=== PATIENT | male | born 1970 | race Caucasian/White ===

== ENCOUNTER 2024-11-09 13:48 | Inpatient (IN) | payer BC ==
--- OUTSIDE RECORDS SUMMARY | 2024-11-09 13:52 | XMS REPORT | Continuity of Care Document ---
Author Name Unknown Address [address] [facility] [address] [place] [address] [facility] Address [address] [facility] [address] [place] [address] Care Team Providers Care Boat Finisher Name Role Phone Pcp, Patient Does Not Have A Primary Care Physic gustavo BALDEMAR BOURGEOIS Attending Clinician Unavailable Baldemar Bourgeois MD Attending Clinician [phone] Doctor Unassigned, Leal Attending Clinician U navailable Payers Payer Name Policy Type Policy Number Effective Date Expirati on Date Source [facility] [id number] 2017 00:00:00 Allergies, Adverse Reactions, Alerts Allergy Name Allergy Type Status Severity Reaction(s) Onset Date Inactive Date Treating Clinician Comments Source NO KNOWN ALLERGIE S Drug Class Active [facility] Social History Social Habit Start Date Stop Date Quantity Comments Source Gender identity [facility] Sexual orientation U [facility] Sex Assigned At 1970 00:00:00 1970 00:00:00 [facility] Smoking Status Start Date Stop Date Source Tobacco smoking consumption unknown [facility] Procedures Procedure Date / Time Performed Performing Clinicia n Source EXTERNAL PROVIDER - ADC CARDIOLOGY 2023-06-12 05:01:00 Doctor Unassigned, Leal [facility] Encounters Start Date/Time End Date/Time Encounter Type Admission Type Attending Clinicians Care Facility Care Department Encounter ID Source 2023-10-13 13:00:00 2023-10-13 13:00:00 Outpatient R BALDEMAR BOURGEOIS [facility] [id number] [facility] 2023-06-19 00:00:00 2023-06-19 00:00:00 Telephone Dwayne Baldemar [facility] PROFESSIO [facility] 1..[id number] [facility] 2023-06-12 00:00:00 2023-06-12 00:00:00 Orders Only Doctor Unassigned, Leal [facility] 1..840.114 [id number] [facility]
[2024-11-09] MEDS ORDERED: ALBUTEROL 2.5 MG/3 ML NEB SOL ONE (14:10)
[2024-11-09] MEDS ORDERED: IPRATROPIUM BROM 0.5MG/2.5ML ONE (14:10)
[2024-11-09] MEDS ORDERED: NA CHLORIDE 0.9% 500 ML ONE (14:56)
[2024-11-09] MEDS ORDERED: NA CHLORIDE 0.9% 2,000 ML ONE (14:56)
[2024-11-09 15:01] LABS: Absolute Eosinophils 0.1 K/uL (0-0.5); Absolute Lymphocytes (CBC) 1.4 K/uL (0.7-4.9); Absolute Monocytes 0.8 K/uL (0.1-1.3); Absolute Neutrophil 4.3 K/uL (1.8-8.0); Basophils % 0.4 % (0-1.3); Eosinophils % 1.6 % (0-4.4); Hematocrit 36.4 % (39.6-49.0); Hemoglobin 12.1 g/dL (13.6-17.9); Lymphocytes % 21.2 % (15.3-44.8); MCH 32.8 pg (27.0-35.0); MCHC 33.1 g/dL (32.0-36.0); MCV 99.1 fL (80-100); MPV 6.7 fL (7.6-11.3); Monocytes % 12.1 % (3.3-12.3); Neutrophils % 64.7 % (41.7-73.7); Nucleated Red Blood Cells % 0.1 % (0-0); Platelets 184 thou/uL (152-406); RBC Red Blood Cell Count 3.67 M/uL (4.33-5.43); Red Cell Distribution Width 15.5 % (12.1-15.2)
[2024-11-09 15:18] LABS: PT Prothrombin Time 12.3 SECONDS (9.4-12.5); PTT, Activated Partial Thromb 32.1 SECONDS (24.3-36.9); Protime INR 1.17
[2024-11-09 15:32] LABS: Albumin 2.8 g/dL (3.4-5.0); Albumin/Globulin Ratio 0.6 (1.1-1.8); Anion Gap 2.8 mEq/L (5.0-15.0); Bilirubin Total 0.6 mg/dL (0.2-1.0); Globulin 4.5 g/dL (2.3-3.5); Potassium 3.8 mEq/L (3.5-5.1); Protein, Total 7.3 g/dL (6.4-8.2)
[2024-11-09 15:54] LABS: Thyroid Stimulating Hormone 22.3 uIU/mL (0.358-3.740)
[2024-11-09 16:17] LABS: SARS-CoV-2 Antigen CONTROL BLUE LINE VIS/BG OK; SARS-CoV-2 Antigen Rapid Res Negative (Negative)
--- NOTE | 2024-11-09 16:41 | RAD REPORT ---
EXAM: CT Head Brain Wo Cont HISTORY: SLURRED SPEECH COMPARISON: None TECHNIQUE: Multiple contiguous axial images were obtained for a CT of the brain without contrast. Sag ittal and coronal reformats were performed. One or more of the following dose reduction techniques were used: Automated exposure control, adjus tment of the mA and kV according to patient size, and iterative reconstruction. Unless otherwise specified, incidental findings do not require dedicated imaging follow-up. FINDINGS: No evidence of hydrocephalus, intracranial hemorrhage, or extra-axial fluid collection. The brain is normal in morphology. The calvarium is intact. The visualized paranasal sinuses show patchy opacification with complete opa cification of the left maxillary sinus. Leftward directed shelflike spur of the nasal septum, encroaching upon the root of the left inferior turbinate. Large periapical collections along the seco nd to last bilateral maxillary molars, with communication with the maxillary antrum cavities, with larger gap on the left. IMPRESSION: No evidence of acute intracranial abnormality. Opacification throughout the paranasal sinuses as above. Periapical collections along the second to l ast bilateral maxillary molars with communication with the maxillary antra, suggesting sinus disease of odontogenic origin. Please correlate clinically.
--- NOTE | 2024-11-09 16:48 | RAD REPORT ---
EXAMINATION: ONE VIEW CHEST XR CLINICAL INDICATION: Male, 54 years old.,Cough;Congestion TECHNIQUE: Frontal chest projection is submitted. Examination is limited by patient positioning and t echnique. COMPARISON: 02/13/2013 FINDINGS: Mild central interstitial prominence. Suboptimal inspiratory effort somewhat limits evaluation. No p neumothorax or sizable effusion. The heart is upper limit of normal in size. Mediastinal contours are unremarkable. IMPRESSION: Mild central interstitial prominence, could relate to central atelectatic changes or mild congestion.
[2024-11-09 17:29] LABS: Arterial Blood Carboxyhemoglob 1.2 % (0-1.5); Blood Gas Oxyhemoglobin 88.1 % (94-97); Blood O2 Saturation 90.9 % (92-98.5)
--- NOTE | 2024-11-09 19:34 | RAD REPORT ---
EXAMINATION: CT Thorax Wo Con CLINICAL INDICATION: Male, 54 years old. [facility] DYSPNEA Bed Name: 16 Y TECHNIQUE: Axial CT scan of the chest without intravenous contrast. Multiplanar reformats were genera luis fernando and reviewed. One or more of the following dose reduction techniques were used: Automated exposure control, adjustment of the mA and/or kV according patient size, and/or iterative reconstruct ion. Unless otherwise specified, incidental findings do not require dedicated imaging follow-up. COMPARISON: Chest radiograph earlier the same day FINDINGS: LOWER NECK: Visualized thyroid gland and soft tissues are normal. LUNGS: Patchy dependent lower lobe consolidative airspace opacities worse on the left. Other scattere d tree-in-bud opacities throughout the left more than right lungs, with some accompanying bilateral lower lobe bronchial wall thickening. Findings could obscure subtle suspicious nodules. PLEURA: No pleural effusion. No pneumothorax. . MEDIASTINUM AND LYMPH NODES: No mediastinal mass or fluid collection. Prominent right paraesophageal posterior mediastinal 1.1 cm node. Otherwise normal size mediastinal, hilar, and axillary lymph nodes. OSSEOUS STRUCTURES AND CHEST WALL: Intact. UPPER ABDOMEN: No significant abnormalities. IMPRESSION: Patchy lower lobe predominant consolidative as well as more diffuse tree-in-bud opacities bilaterally , overall findings are worse throughout the left lung. Appearance is most suggestive of a multifocal infectious or inflammatory process such as pneumonia.
--- NOTE | 2024-11-09 19:53 | EDPHYS ---
Physician Documentation [facility] Name: Jeromy Flores Age: 54 yrs Sex: Male : 1970 Arrival Date: 11/09/2024 Time: 13:48 Bed 15 Private MD: ED Physician Andre Alonzo HPI: 11/09 14:07 This 54 yrs old Male presents to ER via Ambulatory with complaints of Flu Symptoms, kb Dizziness. 14:07 Pt is a 54 year old male who presents for cough, congestion, shortness of breath, kb fatigue, weakness and slower thought process than normal for 2-4 weeks. Son states he thinks pt had the flu last week and is getting over it now. States he hasn't been able to bring him up here until now. Pt reports history of hypothyroidism, but hasn't been on medication for about 2 years. States he doesn't have a PCP so he is unsure of any other medical issues. Stopped smoking close to 10 years ago. . Historical: - Allergies: 14:01 No Known Allergies; cm10 - PMHx: 14:01 Hypothyroidism; cm10 - Immunization history:: Adult Immunizations unknown. - Infectious Disease History:: Denies. - Social history:: Smoking status: Patient/guardian denies using tobacco, the patient reports quitting approximately 6 years ago. ROS: 14:07 Constitutional: As per HPI kb Exam: 14:11 Constitutional: This is a well developed, well nourished patient who is awake, alert, kb and in no acute distress. Head/Face: Normocephalic, atraumatic. ENT: Moist Mucous membranes Cardiovascular: Regular rate Abdomen/GI: Soft, non-tender. No distention MS/ Extremity: Pulses equal, no cyanosis. Neurovascular intact. Full, normal range of motion. 14:11 Respiratory: the patient does not display signs of respiratory distress, Respirations: normal, Breath sounds: decreased breath sounds, 14:11 Skin: Appearance: normal except for affected area, Color: dusky, 14:11 Neuro: Orientation: to person, place, time \T\ situation. Mentation: able to follow commands, slow to respond, Motor: moves all fours, 15:20 ECG was reviewed by the Attending Physician. kb Vital Signs: 13:59 BP 90 / 60; Pulse 69; Resp 18; Temp 98.4; Pulse Ox 72% ; Weight 113.4 kg; Height 5 ft. cm10 7 in. ; Pain 0/10; 14:10 Pulse Ox 94% on 6 lpm NC; cm10 14:53 BP 99 / 55; Pulse 60; Resp 19; Pulse Ox 94% on 4 lpm NC; ap3 16:08 BP 92 / 66; Pulse 67; Pulse Ox 96% on 4 lpm NC; ap3 17:02 BP 107 / 66; Pulse 64; Resp 17; Pulse Ox 88% on 5 lpm NC; ap3 18:18 BP 103 / 54; Pulse 54; Resp 16; Pulse Ox 97% on BiPAP; ap3 13:59 Body Mass Index 39.16 (113.40 kg, 170.18 cm) cm10 13:59 Pain Scale: Adult cm10 MDM: 13:54 Medical Screening Exam initiated kb 14:12 Data reviewed: vital signs, nurses notes. kb 15:08 Independent interpretation of the following test(s) in the Emergency Department X-Ray: kb My interpretation is CXR reveals pulmonary edema. Historians other than the Patient: Daughter/Son: son. ED course: Patient will be given 1000ml of IV fluid instead of 30ml/kg due to concern for fluid overload, pulmonary edema on CXR. 19:50 Differential diagnosis: viral Infection, bacterial infection, pneumonia pulmonary kb edema, PE. Consideration of Admission/Observation Patient was admitted/placed on observation. Escalation of care including admission/observation considered. Management of patient was discussed with the following: Hospitalist: Dr Sparrow accepts pt for admission. Counseling: I had a detailed discussion with the patient and/or guardian regarding the historical points, exam findings, and any diagnostic results supporting the discharge/admit diagnosis, lab results, radiology results, the need for further work-up and treatment in the hospital. ED course: Discussed transfer for ICU capacity with pt and son. They do not want to be transferred, prefer to stay here. Son's name Reynold, phone number [phone].. 11/09 14:03 Order name: Blood Culture Adult (2) kb 11/09 14:03 Order name: CBC with Diff; Complete Time: 15:03 kb 11/09 14:03 Order name: CMP; Complete Time: 16:08 kb 11/09 14:03 Order name: Lactate w/ 2H reflex if indic.; Complete Time: 15:59 kb 11/09 14:03 Order name: Protime (+inr); Complete Time: 15:19 kb 11/09 14:03 Order name: Ptt, Activated; Complete Time: 15:19 kb 11/09 14:03 Order name: Flu; Complete Time: 16:21 kb 11/09 14:03 Order name: SARS-COV-2 Antigen Rapid; Complete Time: 16:21 kb 11/09 14:03 Order name: Troponin High Sensitivity; Complete Time: 16:08 kb 11/09 14:03 Order name: BNP; Complete Time: 16:08 kb 11/09 14:04 Order name: TSH; Complete Time: 16:08 kb 11/09 15:56 Order name: T4 Free; Complete Time: 16:08 EDMS 11/09 16:57 Order name: ABG; Complete Time: 17:34 kb 11/09 20:45 Order name: Urinalysis w/ reflexes EDMS 11/09 20:45 Order name: Basic Metabolic Panel EDMS 11/09 20:45 Order name: Basic Metabolic Panel EDMS 11/09 20:45 Order name: CBC with Automated Diff EDMS 11/09 20:45 Order name: CBC with Automated Diff EDMS 11/10 09:46 Order name: CBC Smear Scan EDMS 11/09 14:03 Order name: Chest Single View XRAY; Complete Time: 16:50 kb 11/09 14:04 Order name: CT Head Brain wo Cont; Complete Time: 16:44 kb 11/09 16:51 Order name: CT Chest Wo Con; Complete Time: 19:35 kb 11/09 17:15 Order name: BIPAP kb 11/09 14:03 Order name: EKG; Complete Time: 14:04 kb 11/09 14:03 Order name: Accucheck; Complete Time: 15:35 kb 11/09 14:03 Order name: Cardiac monitoring; Complete Time: 14:53 kb 11/09 14:03 Order name: EKG - Nurse/Tech; Complete Time: 15:35 kb 11/09 14:03 Order name: IV Saline Lock - Large Bore; Complete Time: 14:53 kb 11/09 14:03 Order name: Labs collected and sent; Complete Time: 14:53 kb 11/09 14:03 Order name: O2 Per Protocol; Complete Time: 14:53 kb 11/09 14:03 Order name: O2 Sat Monitoring; Complete Time: 14:53 kb 11/09 14:03 Order name: Vital Signs; Complete Time: 14:53 kb EC:20 Rate is 70 beats/min. Rhythm is regular. QRS Ovalo is Normal. DC interval is normal at kb 192 msec. QRS interval is normal at 84 msec. QT interval is normal at 434 msec. Administered Medications: 14:16 Drug: Albuterol Inhalation 2.5 mg Inhalation once Route: Inhalation; cm10 14:16 Drug: Ipratropium Inhalation Aerosol 0.5 mg Inhalation once Route: Inhalation; cm10 15:02 Drug: NS 0.9% IV (30 ml/kg) 30 ml/kg IV at bolus once; Sepsis Protocol; to be given as ap3 a bolus over 90 minutes {Note: administer 1,000mls per provider 1000.} Route: IV; Rate: bolus; Site: right antecubital; 20:28 Drug: Zithromax IVPB 500 mg IVPB once over 1 hrs; mix in 250 mL NS Route: IVPB; Infused ay Over: 1 hrs; Site: right antecubital; 20:29 Drug: Rocephin IV 1 grams IV at calculated rate once; Given slow IV push per pharmacy ay instructions Route: IV; Rate: calculated rate; Site: right antecubital; Disposition: 18:00 I agree with the assessment and plan of care. ec2 Disposition Summary: 11/09/24 19:52 Hospitalization Ordered Notes: Hospitalization Status: Inpatient Admission kb Provider: Ancelmo Sparrow Condition: Fair kb Problem: new kb Symptoms: are unchanged kb Bed/Room Type: Standard Location: Telemetry/MedSurg (Inpatient)(11/10/24 14:41) kb3 Room Assignment: 206(11/10/24 14:41) kb3 Diagnosis - Pneumonia, unspecified organism kb - Hypoxia kb Discharge Instructions: - Discharge Summary Sheet ap3 Forms: - Medication Reconciliation Form kb - Leadership Thank You Letter kb - SBAR form ap3 Critical care time excluding procedures: 17:16 Critical care time: Bedside Care: 15 minutes, Consultation: 10 minutes, Family kb Intervention: 5 minutes. Total time: 30 minutes Signatures: Dispatcher [employer] Cynthia Smith FNP-C FNP-Ckb Annel Mendoza, RN RN ap3 Virginia Syed RN RN kb3 Kajal Jacobson rv1 Sangeeta Lawson bc6 Diann Bone RN RN cm10 Andre Alonzo MD MD ec2 Anitha Stewart RN RN ay Corrections: (The following items were deleted from the chart) 14:05 14:05 THYROID STIMULAT HORMONE+C.LAB.BRZ ordered. EDMS EDMS 16:57 16:57 Arterial Blood Gas+RC.LAB.BRZ ordered. EDMS EDMS 20:56 19:52 Telemetry/MedSurg (Inpatient) kb rv1 20:56 19:52 kb rv1 11/10 14:41 02/05 20:56 [facility] ER HOLD rv1 6 11/10 14:41 02/05 20:56 ERHOLD- rv1 6 11/10 14:41 14:41 Telemetry/MedSurg (Inpatient) 6 kb3 14:41 14:41 206 6 kb3
--- NOTE | 2024-11-09 19:53 | ER ---
Nurse's Notes [facility] Name: Jeromy Flores Age: 54 yrs Sex: Male : 1970 Arrival Date: 11/09/2024 Time: 13:48 Bed 15 Private MD: Diagnosis: Pneumonia, unspecified organism;Hypoxia Presentation: 11/09 13:59 Chief complaint: Patient states: Cough, congestion, shortness of breath and fatigue cm10 onset 2 weeks ago. Coronavirus screen: Client denies travel out of the [place] in the last 14 days. Ebola Screen: Patient denies travel to an Ebola-affected area in the 21 days before illness onset. Initial Sepsis Screen: Does the patient meet any 2 criteria? No. Patient's initial sepsis screen is negative. Does the patient have a suspected source of infection? No. Patient's initial sepsis screen is negative. Risk Assessment: Do you want to hurt yourself or someone else? Patient reports no desire to harm self or others. Onset of symptoms was November 09, 2024. 13:59 Method Of Arrival: Ambulatory cm10 13:59 Acuity: JAZMINE 2 cm10 Historical: - Allergies: 14:01 No Known Allergies; cm10 - PMHx: 14:01 Hypothyroidism; cm10 - Immunization history:: Adult Immunizations unknown. - Infectious Disease History:: Denies. - Social history:: Smoking status: Patient/guardian denies using tobacco, the patient reports quitting approximately 6 years ago. Screenin:08 [facility] ED Fall Risk Assessment (Adult) History of falling in the last 3 months, ap3 including since admission No falls in past 3 months (0 pts) Confusion or Disorientation No (0 pts) Intoxicated or Sedated No (0 pts) Impaired Gait No (0 pts) Mobility Assist Device Used Yes (1 pt) Altered Elimination No (0 pt) Score/Fall Risk Level 0 - 2 = Low Risk Oriented to surroundings, Maintained a safe environment, Educated pt \T\ family on fall prevention, incl call for assistance when getting out of bed, Assessed \T\ reinforced patient's understanding of fall precautions, Hourly rounding (assess needs \T\ fall precautionary measures) done, Used ambulatory aids as needed (educated on \T\ assisted with). Abuse screen: Denies threats or abuse. Nutritional screening: No deficits noted. Tuberculosis screening: No symptoms or risk factors identified. Assessment: 14:10 General: O2 sat decreased to 54% on RA. Pt placed on 6L via NC and O2 sat improved to cm10 94%. Provider made aware.. 15:38 General: Appears comfortable, Behavior is calm, cooperative, appropriate for age. Pain: ap3 Denies pain. Neuro: Level of Consciousness is awake, alert, obeys commands, Oriented to person, place, time, situation, Appropriate for age Speech is normal. Neuro: Reports dizziness has resolved. Cardiovascular: Patient's skin is warm and dry. Respiratory: Airway is patent Respiratory effort is even, unlabored, Respiratory pattern is regular, symmetrical. 16:12 Reassessment: Patient states symptoms have improved. ap3 Vital Signs: 13:59 BP 90 / 60; Pulse 69; Resp 18; Temp 98.4; Pulse Ox 72% ; Weight 113.4 kg; Height 5 ft. cm10 7 in. ; Pain 0/10; 14:10 Pulse Ox 94% on 6 lpm NC; cm10 14:53 BP 99 / 55; Pulse 60; Resp 19; Pulse Ox 94% on 4 lpm NC; ap3 16:08 BP 92 / 66; Pulse 67; Pulse Ox 96% on 4 lpm NC; ap3 17:02 BP 107 / 66; Pulse 64; Resp 17; Pulse Ox 88% on 5 lpm NC; ap3 18:18 BP 103 / 54; Pulse 54; Resp 16; Pulse Ox 97% on BiPAP; ap3 13:59 Body Mass Index 39.16 (113.40 kg, 170.18 cm) cm10 13:59 Pain Scale: Adult cm10 ED Course: 13:53 Patient arrived in ED. al6 13:54 [facility] kb 13:54 Andre Alonzo MD is Attending Physician. kb 14:01 Triage completed. cm10 14:02 Arm band placed on right wrist. Patient placed in an exam room, on a stretcher, on cm10 oxygen, on pulse oximetry. 14:42 Chest Single View XRAY In Process Unspecified. EDMS 14:52 Annel Mendoza, RN is Primary Nurse. ap3 14:52 Patient has correct armband on for positive identification. Placed in gown. Bed in low ap3 position. Call light in reach. Side rails up X2. Adult w/ patient. Client placed on continuous cardiac and pulse oximetry monitoring. NIBP monitoring applied. monitoring and evaluation advisor on. Pulse ox on. NIBP on. 14:52 Initial lab(s) drawn, by me, sent to lab. Inserted saline lock: 20 gauge in right ap3 antecubital area, using aseptic technique. Blood collected. Flushed with 10 mL NS. 15:03 CT Head Brain wo Cont In Process Unspecified. EDMS 15:19 EKG done, by ED staff, reviewed by Cynthia RAE. ap3 16:09 Provided Education on: fall risk education . ap3 18:49 CT Chest Wo Con In Process Unspecified. EDMS 19:48 Initiated transfer with My Carmona at [facility]. My informed me that [address] was declining due to capacity. Offered to check [facility] [place] although she was sure they were closed as well but Cynthia Villela INTERPRETATIVE DANCER said to cancel transfer due to family request. 19:52 Ancelmo Sparrow MD is Hospitalizing Provider. kb Administered Medications: 14:16 Drug: Albuterol Inhalation 2.5 mg Inhalation once Route: Inhalation; cm10 14:16 Drug: Ipratropium Inhalation Aerosol 0.5 mg Inhalation once Route: Inhalation; cm10 15:02 Drug: NS 0.9% IV (30 ml/kg) 30 ml/kg IV at bolus once; Sepsis Protocol; to be given as ap3 a bolus over 90 minutes {Note: administer 1,000mls per provider 1000.} Route: IV; Rate: bolus; Site: right antecubital; 20:28 Drug: Zithromax IVPB 500 mg IVPB once over 1 hrs; mix in 250 mL NS Route: IVPB; Infused ay Over: 1 hrs; Site: right antecubital; 20:29 Drug: Rocephin IV 1 grams IV at calculated rate once; Given slow IV push per pharmacy ay instructions Route: IV; Rate: calculated rate; Site: right antecubital; Outcome: 19:52 Decision to Hospitalize by Provider. kb 11/10 16:21 Patient left the ED. iw Signatures: Dispatcher [employer] EDCynthia Owens FNP-C FNP-Kianna Sidhu RN Annel Fitzgerald RN RN ap3 Kajal Jacobson rv1 Diann Bone RN RN cm10 Anitha Stewart RN Iva Nunez Corrections: (The following items were deleted from the chart) 11/09 14:21 14:15 General: O2 sat decreased to 54% on RA. Pt placed on 6L via NC and O2 sat cm10 improved to 94%. Provider made aware.. cm10
[2024-11-09] MEDS ORDERED: AZITHROMYCIN 500 MG INJ IVPB ONE (19:59)
[2024-11-09] MEDS ORDERED: CEFTRIAXONE 1000 MG/VIAL ONE (19:59)
[2024-11-09] MEDS ORDERED: NA CHLORIDE 0.9% 250 ML ONE (20:00)
[2024-11-10] MEDS: METHYLPREDNISOLONE 125 MG INJ IV SCH
[2024-11-10] MEDS ORDERED: METHYLPREDNISOLONE 40 MG INJ ONE ×2 (01:42→06:17)
[2024-11-10] MEDS: ALBUTEROL 2.5 MG/3 ML NEB SOL NEB SCH (01:58)
[2024-11-10] MEDS: IPRATROPIUM BROM 0.5MG/2.5ML NEB SCH (01:58)
[2024-11-10 06:38] LABS: Anion Gap 3.2 mEq/L (5.0-15.0); Potassium 4.2 mEq/L (3.5-5.1)
[2024-11-10 06:44] LABS: Absolute Lymphocytes (CBC) 0.7 K/uL (0.7-4.9); Absolute Monocytes 0.3 K/uL (0.1-1.3); Absolute Neutrophil 5.8 K/uL (1.8-8.0); Basophils % 0.2 % (0-1.3); Eosinophils % 0.5 % (0-4.4); Hematocrit 37.8 % (39.6-49.0); Hemoglobin 12.4 g/dL (13.6-17.9); Lymphocytes % 9.8 % (15.3-44.8); MCH 33.1 pg (27.0-35.0); MCHC 32.7 g/dL (32.0-36.0); MCV 101.1 fL (80-100); MPV 7.6 fL (7.6-11.3); Monocytes % 3.8 % (3.3-12.3); Neutrophils % 85.7 % (41.7-73.7); Nucleated Red Blood Cells % 0.2 % (0-0); Platelets 194 thou/uL (152-406); RBC Red Blood Cell Count 3.74 M/uL (4.33-5.43); Red Cell Distribution Width 15.7 % (12.1-15.2)
--- NOTE | 2024-11-10 06:56 | P.HP ---
Certification for Inpatient Patient admitted to: Inpatient With expected LOS: >2 Midnights Practitioner: I am a practitioner with admitting privileges, knowledge of patient current condition, hospital course, and medical plan of care. Services: Services provided to patient in accordance with Admission requirements found in Title 42 Section 412.3 of the Code of Federal Regulations Patient History Date of Service: 11/10/24 Reason for admission: pneumonia History of Present Illness: Cough shortness of breath 54-year-old male with history of COPD, hypothyroidism previous tobacco use presents with complaints of progressive fatigue weakness, cough congestion and shortness of breath. The patient reports not having a PCP and reports being off medications for some time Allergies No Known Allergies Allergy (Unverified 02/13/13 22:31) Review of Systems 10-point ROS is otherwise unremarkable Respiratory: Cough, Shortness of Breath Physical Examination - Vital Signs Pulse: 61 Pulse Ox (%): 96 - Physical Exam General: Oriented x3, Other (BIPAP) Respiratory: Other (BIPAP) Cardiovascular: Regular rate/rhythm Gastrointestinal: Normal bowel sounds, Soft and benign Neurological: Other (lethargic , arousable ) - Studies Laboratory Data (last 24 hrs) 11/09/24 11/09/24 11/09/24 14:46 14:46 14:46 WBC 6.70 Hgb 12.1 L Hct 36.4 L Plt Count 184 PT 12.3 INR 1.17 APTT 32.1 Sodium 136 Potassium 3.8 BUN 26 H Creatinine 2.01 H Glucose 96 Total Bilirubin 0.6 AST 57 H ALT 55 Alkaline Phosphatase 80 Microbiology Data (last 24 hrs): 11/09/24 15:16 Nasopharnyx Influenza Type A Antigen Screen - Final 11/09/24 15:16 Nasopharnyx Influenza Type B Antigen Screen - Final Assessment and Plan - Problems (Diagnosis) (1) COPD (chronic obstructive pulmonary disease) Current Visit: Yes Status: Acute (2) Hypercapnia Current Visit: Yes Status: Acute (3) Pneumonia Current Visit: Yes Status: Acute (4) Hypothyroid Current Visit: Yes Status: Acute (5) Acute kidney failure Current Visit: Yes Status: Acute - Plan 54-year-old male presents with progressive shortness of breath COPD exacerbation Community-acquired pneumonia Acute hypoxemic hypercapnia respiratory failure -- Continue oxygen, BiPAP, azithromycin, Rocephin, albuterol, ipratropium -- Reports previous smoker Hypothyroidism --Off treatment currently TFTs abnormal Acute kidney injury --Unclear baseline creatinine, gentle hydration repeat labs, renal dose medications Medication noncompliance -- Would benefit from case management consultation to establish PCP and medication access - Advance Directives Does patient have a Living Will: No Does patient have a Durable POA for Healthcare: No
[2024-11-10] MEDS: AZITHROMYCIN 1 GM PACKET PO SCH (07:00)
[2024-11-10] MEDS ORDERED: IPRATROPIUM BROM 0.5MG/2.5ML ONE ×2 (08:35→14:36)
[2024-11-10] MEDS ORDERED: ALBUTEROL 2.5 MG/3 ML NEB SOL ONE ×2 (08:35→14:35)
[2024-11-10] MEDS ORDERED: ENOXAPARIN 40 MG/0.4 ML SQ ONE (08:45)
[2024-11-10] MEDS ORDERED: CEFTRIAXONE 1000 MG/VIAL ONE (08:45)
[2024-11-10] MEDS ORDERED: NA CHLORIDE 0.9% 100 ML ONE (08:46)
[2024-11-10] MEDS: CEFTRIAXONE 1,000 MG in NA CHLORIDE 0.9% 50 ML IVPB SCH (09:00)
[2024-11-10] MEDS: ENOXAPARIN 40 MG/0.4 ML SQ SCH (09:00)
[2024-11-10 09:46] LABS: Basophilic Stippling 1+; Blood Morphology Comment NOTED (NOT SEEN); Platelet Estimate ADEQ; White Blood Cell Scan OK (OK)
[2024-11-10] MEDS ORDERED: AZITHROMYCIN 500 MG INJ IVPB ONE (09:55)
[2024-11-10] MEDS ORDERED: NA CHLORIDE 0.9% 250 ML ONE (09:55)
[2024-11-10] MEDS: AZITHROMYCIN IV 500 MG in NA CHLORIDE 0.9% 250 ML IVPB SCH (10:00)
--- NOTE | 2024-11-10 11:28 | EKG ---
Test Date: 2024-11-09 Test Time: 15:12:04 Harvester Operator: ALP MEASUREMENT RESULTS: Intervals: Rate: 70 PA: 192 QRSD: 84 QT: 402 QTc: 434 [place]: P: 62 PA: 192 QRS: 104 T: 66 INTERPRETIVE STATEMENTS: Normal sinus rhythm Low voltage QRS Borderline ECG Compared to ECG 02/14/2013 02:26:18 Low QRS voltage now present Sinus bradycardia no longer present T-wave abnormality no longer present Electronically Signed On 11-10-24 11:25:55 BEEF GRINDER by Jose Alfredo Banerjee
[2024-11-10] MEDS ORDERED: METHYLPREDNISOLONE 125 MG INJ ONE (16:09)
[2024-11-10 16:12] VITALS: BMI 38.9
--- NOTE | 2024-11-10 18:51 | P.PN ---
Date of Service: 11/10/24 Patient seen and examined. Patient noted to be using BiPAP this morning. Arterial blood gas showed CO2 retention. Plan Serial blood gas Bronchodilator treatment IV steroid IV antibiotic Pulmonary consult.
[2024-11-10] MEDS: ALBUTEROL 2.5 MG/3 ML NEB SOL ONE (21:14)
[2024-11-10] MEDS: IPRATROPIUM BROM 0.5MG/2.5ML ONE (21:14)
[2024-11-11] MEDS: LEVOTHYROXINE SOD 0.088 MG TAB PO SCH (05:56)
[2024-11-11 05:59] LABS: Anion Gap 4.9 mEq/L (5.0-15.0); Potassium 4.9 mEq/L (3.5-5.1)
[2024-11-11 06:15] LABS: Absolute Lymphocytes (CBC) 0.6 K/uL (0.7-4.9); Absolute Monocytes 0.3 K/uL (0.1-1.3); Absolute Neutrophil 10.6 K/uL (1.8-8.0); Hematocrit 36.5 % (39.6-49.0); Lymphocytes % 5.6 % (15.3-44.8); MCHC 32.9 g/dL (32.0-36.0); MCV 100.5 fL (80-100); Monocytes % 2.3 % (3.3-12.3); Neutrophils % 92.1 % (41.7-73.7); Nucleated Red Blood Cells % 0.1 % (0-0); Platelets 164 thou/uL (152-406); RBC Red Blood Cell Count 3.64 M/uL (4.33-5.43); Red Cell Distribution Width 15.4 % (12.1-15.2)
[2024-11-11] MEDS: IPRATROPIUM BROM 0.5MG/2.5ML ONE (06:25)
[2024-11-11] MEDS: ALBUTEROL 2.5 MG/3 ML NEB SOL ONE (06:25)
--- NOTE | 2024-11-11 11:36 | P.CNS ---
Date of Consult: 11/11/24 Reason for Consult: Respiratory failure Chief Complaint: pneumonia History of Present Illness: Patient is 54 years of age former smoker apparently has been complaining of worsening dyspnea weight gain quit taking his thyroid medication in the hospital with hypoxic hypercapnic respiratory failure he has been sleeping in an upright position denies any cough to use any bronchodilators at home Allergies No Known Allergies Allergy (Unverified 02/13/13 22:31) Home Medications: Aspirin [Aspirin EC] 81 mg PO DAILY 11/10/24 Furosemide 80 mg PO DAILY 11/10/24 Lisinopril/Hydrochlorothiazide [Lisinopril-Hctz 20-12.5 mg Tab] 20 mg PO DAILY 11/10/24 Metoprolol Succinate 50 mg PO DAILY 11/10/24 - Past Medical/Surgical History -: Hypothyroidism Review of Systems 10-point ROS is otherwise unremarkable General: Weakness Respiratory: Cough, Shortness of Breath Physical Examination Temp Pulse Resp BP Pulse Ox 98.1 F 73 16 88/46 L 92 11/11/24 08:00 11/11/24 08:00 11/11/24 08:00 11/11/24 08:00 11/11/24 08:00 General: Alert, Oriented x3 Respiratory: Diminished, Expiratory wheezes Cardiovascular: No edema, Regular rate/rhythm, Normal S1 S2 Gastrointestinal: Normal bowel sounds, Soft and benign - Problems (1) Respiratory failure Current Visit: Yes Status: Acute Plan: Patient is 54 years of age former smoker admitted with hypoxic hypercapnic respiratory failure hypothyroidism he quit taking his hypothyroid medication about 2 months ago also gained weight complains of excessive daytime somnolence loud snoring most likely has underlying sleep apnea function is abnormal mildly anemic. Bilateral patchy infiltrates most likely underlying pneumonia and is also hypothyroid resume his home thyroxine continue with bronchodilators antibiotics and was on lisinopril diuretics at home may be responsible for his renal failure
--- NOTE | 2024-11-11 12:44 | RAD REPORT ---
EXAMINATION: US RETROPERITONEUM CLINICAL INDICATION: Renal failure TECHNIQUE: Real-time ultrasonography of the abdomen was performed. COMPARISON: No prior exam. FINDINGS: RIGHT KIDNEY: Right renal length measurement: 10.5 cm. Normal in echogenicity and size. No calculus, solid mass or hydronephrosis. Suboptimally visualized due to body habitus. LEFT KIDNEY: Left renal length measurement: 9 cm. Normal in echogenicity and size. No calculus, solid mass or hydronephrosis. Suboptimally visualized due to body habitus. ADDITIONAL FINDINGS: None. IMPRESSION: No hydronephrosis. Suboptimally visualized kidneys but grossly unremarkable.
[2024-11-11 15:24] LABS: Arterial Blood Carboxyhemoglob 0.8 % (0-1.5); Blood Gas Oxyhemoglobin 52.1 % (94-97); Blood Gas THB 13.9 g/dl (12-18); Blood O2 Saturation 53.6 % (92-98.5)
--- NOTE | 2024-11-11 16:10 | P.PN ---
Subjective Date of Service: 11/11/24 Chief Complaint: pneumonia Patient hypoxic to 85% on 5 L oxygen by nasal cannula. He wore BiPAP last night. He reported noncompliance with his thyroid replacement. He denies any chest pain. Physical Examination - Vital Signs Temperature: 97.5 F Blood Pressure: 100/59 Pulse: 82 Respirations: 16 Pulse Ox (%): 90 Assessment And Plan - Plan Physical examination General: Alert and oriented x3, NAD, HEENT: Conjunctiva not pale, anicteric sclera Neck: Supple, no elevated JVD Heart: Heart sounds 1 and 2 normal, regular rhythm, normal rate, 1+ bilateral lower extremity pitting edema Lungs: Bilateral wheezes, diminished breath sounds bilaterally, no crackles. Abdomen: Soft, obese abdomen, nontender, normal bowel sounds. Extremities: No tenderness, no deformity, Skin: Normal skin turgor, bilateral lower extremity venous stasis dermatitis Neuro: No focal motor deficit. Normal speech. Psychiatry: Normal mood, no agitation. Diagnosis COPD exacerbation Community-acquired pneumonia Acute on chronic respiratory failure with hypoxia and hypercapnia Hypothyroidism Acute kidney injury Medical noncompliance Plan COPD exacerbation Community-acquired pneumonia Acute hypoxemic hypercapnia respiratory failure Obesity hypoventilation Obstructive sleep apnea Continue BiPAP, Continue azithromycin, Rocephin, Continue nebs-albuterol, ipratropium IV methylprednisolone Pulmonary consulted. Dr. Bravo input appreciated. Patient stated he quit smoking about 4 to 5 months ago. Hypothyroidism Noncompliance with thyroid replacement therapy. Synthroid resumed at 88 mcg daily. Patient need TSH rechecked in 8 weeks. Acute kidney injury Unclear baseline creatinine gentle hydration. Monitor renal function Nephrology consult. Medication noncompliance Compliance to medical treatment reemphasized. DVT prophylaxis: Heparin Advanced directive: Full code
[2024-11-11] MEDS: HEPARIN 5000 UNIT/ML 1 ML VIAL SQ SCH (17:08)
[2024-11-11] MEDS: NA CHLORIDE 0.9% 1,000 ML IV SCH (18:00)
[2024-11-11 18:03] LABS: Magnesium 2.2 mg/dL (1.6-2.4); Phosphorus 2.2 mg/dL (2.5-4.9)
--- NOTE | 2024-11-11 21:47 | PN ---
Date of Progress Note: 11/11/2024 Subjective: This is a 54-year-old man with past medical history of morbid obesity, COPD, hypothyroid ism, ex-smoker. The patient was sent from PCP for shortness of breath. Upon presentation, labs were significant for elevated TSH and creatinine of 1.9. The patient has no previous medical records. D enied any medical renal disease. The patient also denied NSAID intake. Past Medical History: COPD, hypothyroidism. Past Surgical History: None documented. Family History: Noncontributory. Allergies: NO KNOWN DRUG ALLERGIES. Review of Systems: Positive for cough, shortness of breath. Denies chest pain, palpitations. No lower extremity swelli ng, nausea, vomiting, or diarrhea. Objective: Vital Signs: Temperature 97.5, pulse rate 82, blood pressure 100/59. General: Awake and alert. Looks chronically ill. Neck: Supple. No elevated JVD. Heart: Regular rate and rhythm. Normal S1, S2. Chest: Diminished air entry to the bases. No rales or wheezes. Abdomen: Soft and nontender. Extremities: No edema. Laboratory Data: Sodium 138, potassium 4.9, BUN 30, creatinine 2.2. Imaging Studies: Renal ultrasound, right kidney 10.5 cm, left kidney 9 cm with normal echogenicity. No hydronephrosis. Assessment And Plan: 1. Acute on chronic kidney disease versus chronic kidney disease and at baseline creatinine. Last av ailable records in 2012, creatinine was 1. Acute kidney injury, possibly due to the chronic hypothyr oidism. Renal ultrasound showed no hydronephrosis. We will order [id number]. We will give gentle hydration of total 1 L renal dose medication. Avoid NSAID and contrast. 2. Chronic obstructive pulmonary disease exacerbation, possibly due to pneumonia. Continue inhalers, advised to use BiPAP. 3. Hypothyroidism. TSH of 22, started on Synthroid. Thanks for allowing me to participate in the patient's care. Total time spent 75 minutes including d ocumentation, reviewing labs, and placing orders. CADE/GERRI Voice ID: [id number] Report ID: [id number]
[2024-11-11] MEDS: MIDODRINE HCL 5 MG TABLET PO ONE (23:22)
[2024-11-12] MEDS: ACETAMINOPHEN 325 MG TABLET PO PRN (05:13)
[2024-11-12 06:11] LABS: Absolute Lymphocytes (CBC) 0.4 K/uL (0.7-4.9); Absolute Monocytes 0.4 K/uL (0.1-1.3); Absolute Neutrophil 13.6 K/uL (1.8-8.0); Basophils % 0.2 % (0-1.3); Hematocrit 34.3 % (39.6-49.0); Hemoglobin 11.3 g/dL (13.6-17.9); MCH 32.7 pg (27.0-35.0); MCHC 32.8 g/dL (32.0-36.0); MCV 99.8 fL (80-100); Monocytes % 2.7 % (3.3-12.3); Neutrophils % 94.1 % (41.7-73.7); Platelets 143 thou/uL (152-406); RBC Red Blood Cell Count 3.44 M/uL (4.33-5.43); Red Cell Distribution Width 15.5 % (12.1-15.2)
[2024-11-12 06:26] LABS: Anion Gap 7.9 mEq/L (5.0-15.0); Potassium 4.9 mEq/L (3.5-5.1)
[2024-11-12 08:48] LABS: Blood Morphology Comment NOT SEEN (NOT SEEN); Platelet Estimate ADEQ; White Blood Cell Scan OK (OK)
[2024-11-12 09:00] LABS: Hepatitis B Core Ab, Total Nonreactive (Nonreactive); Hepatitis B surface AG Interp. Nonreactive (Nonreactive)
[2024-11-12 09:06] LABS: Hepatitis B Surface Ab - Quant < 3.10 mIU/mL (<8.0)
[2024-11-12 09:07] LABS: HBsAG Nonreactive Report Report
--- NOTE | 2024-11-12 13:09 | P.PN ---
Subjective Date of Service: 11/12/24 Chief Complaint: pneumonia Patient states he feels much better. He is now tolerating about 4 L of oxygen by nasal cannula with oxygen saturation greater than 90%. He denies any chest pain. Physical Examination - Vital Signs Temperature: 98.6 F Blood Pressure: 105/60 Pulse: 80 Respirations: 18 Pulse Ox (%): 93 Assessment And Plan - Plan Physical examination General: Alert and oriented x3, NAD, Neck: Supple, no elevated JVD Heart: Heart sounds 1 and 2 normal, regular rhythm, normal rate, 1+ bilateral lower extremity pitting edema Lungs: Mild scattered wheezes, diminished breath sounds bilaterally, no crackles. Abdomen: Soft, obese abdomen, nontender, normal bowel sounds. Extremities: No tenderness, no deformity, Skin: Normal skin turgor, bilateral lower extremity venous stasis dermatitis Neuro: No focal motor deficit. Normal speech. Psychiatry: Normal mood, no agitation. Diagnosis COPD exacerbation Community-acquired pneumonia Acute on chronic respiratory failure with hypoxia and hypercapnia Hypothyroidism Acute kidney injury Medical noncompliance Plan COPD exacerbation Community-acquired pneumonia Acute hypoxemic hypercapnia respiratory failure Obesity hypoventilation Obstructive sleep apnea Clinically improving Wean oxygen to maintain SaO2 between 88 to 92%. Continue BiPAP at night and during the day as needed. Continue azithromycin, Rocephin, Continue nebs-albuterol, ipratropium Continue IV methylprednisolone Pulmonary Dr. Bravo is following. Hypothyroidism Noncompliance with thyroid replacement therapy. Synthroid resumed at 88 mcg daily. Patient will need TSH rechecked in 8 weeks. Acute kidney injury Unclear baseline creatinine Patient is receiving gentle hydration per nephrology. Monitor renal function Nephrology input appreciated. Medication noncompliance Compliance to medical treatment reemphasized. DVT prophylaxis: Heparin Advanced directive: Full code
[2024-11-12] MEDS: FUROSEMIDE 20 MG/ 2ML VIAL IV ONE (15:43)
[2024-11-12] MEDS: FUROSEMIDE 40 MG/4 ML VIAL ONE (18:25)
[2024-11-12 19:27] LABS: UR SODIUM < 15 mmol/L (27-287)
[2024-11-12 19:37] LABS: UR PROTEIN 38.4 mg/dL (<11.9); Urine Protein/Creatinine Ratio 0.28 ratio (<0.15)
[2024-11-12 20:21] LABS: Specific Gravity 1.028 (1.005-1.030); Sqamous Epithelial None Seen /HPF (None Seen); Urine Bacteria None Seen /HPF (<20); Urine Bilirubin NEGATIVE (Negative); Urine Blood Negative (Negative); Urine Clarity Clear (Clear); Urine Color Light-Yellow (Yellow); Urine Culture Reflex Order NOT NEEDED; Urine Glucose 4+ (Over) (Negative); Urine Ketones NEGATIVE (Negative); Urine Microscopic Reflex YN ORDER UMIC; Urine Nitrite NEGATIVE (Negative); Urine Protein TRACE (Negative); Urine RBC <5 /HPF (None Seen); Urine Sperm Present (None Seen); Urine Urobilinogen Normal (Normal); Urine WBC <5 /HPF (<5)
--- NOTE | 2024-11-12 20:31 | PN ---
Date of Progress Note: 11/12/2024 Subjective: The patient was admitted to the hospital with pneumonia and COPD exacerbation. The jose ent had acute kidney injury secondary to prerenal. Physical Examination: Vital Signs: Blood pressure 105/60, pulse of 80. Chest: Faint rales bilateral. Heart: S1, S2. Regular. Abdomen: Soft, nontender. Extremities: Trace edema. Neurologic: Alert. No focality. Laboratory Data: WBC 14.5, hemoglobin 11.3. Sodium 138, potassium 4.9, bicarb , BUN 35, c reatinine 2, GFR of 37, calcium 8.6, phosphorus 2.2, magnesium 2.2. Serum protein electrophoresis st ill pending. TSH 22. Current Medications: The patient on include: Ceftriaxone, azithromycin, midodrine, Solu-Medrol, and levothyroxine. Diagnostic Data: Renal ultrasound was negative for hydronephrosis 10.02/10. Chest x-ray: Cardiomegal y, mild congestion. Assessment And Plan: 1. Acute kidney injury. Obstructive uropathy has been ruled out secondary to prerenal on the recover y looked to me slightly on the wet side. I am going to give him single dose of Lasix and we will fol low up the patient. 2. Hypertension. Currently blood pressure on the lower side. Keep on hold all blood pressure medica tions. We will give single dose of Lasix. Continue midodrine. 3. Anemia. Follow up serum protein electrophoresis. 4. Alkalosis secondary to hypercapnic respiratory acidosis, stable. We will follow up with Pulmonary. 5. Pneumonia as by Primary and Pulmonary. HILARIO/GERRI Voice ID: [id number] Report ID: [id number]
[2024-11-13 05:54] LABS: Absolute Lymphocytes (CBC) 0.3 K/uL (0.7-4.9); Absolute Monocytes 0.3 K/uL (0.1-1.3); Absolute Neutrophil 10.3 K/uL (1.8-8.0); Basophils % 0.1 % (0-1.3); Hematocrit 35.5 % (39.6-49.0); Hemoglobin 11.9 g/dL (13.6-17.9); Lymphocytes % 3.1 % (15.3-44.8); MCH 33.2 pg (27.0-35.0); MCHC 33.6 g/dL (32.0-36.0); MCV 98.8 fL (80-100); MPV 7.6 fL (7.6-11.3); Monocytes % 2.5 % (3.3-12.3); Neutrophils % 94.3 % (41.7-73.7); Nucleated Red Blood Cells % 0.1 % (0-0); Platelets 155 thou/uL (152-406); Red Cell Distribution Width 15.9 % (12.1-15.2)
[2024-11-13 06:02] LABS: Albumin 2.9 g/dL (3.4-5.0); Anion Gap 7.8 mEq/L (5.0-15.0); Phosphorus 3.5 mg/dL (2.5-4.9); Potassium 4.8 mEq/L (3.5-5.1)
--- NOTE | 2024-11-13 11:26 | P.PN ---
Subjective Date of Service: 11/13/24 Chief Complaint: Respiratory failure Subjective: Improving (Is improving doing better oxygen requirements are declining) Review of Systems General: Weakness Respiratory: Shortness of Breath Physical Examination - Vital Signs Temperature: 98.4 F Blood Pressure: 117/60 Pulse: 73 Respirations: 16 Pulse Ox (%): 94 - Physical Exam General: Alert, In no apparent distress, Oriented x3 Respiratory: Clear to auscultation bilaterally, Diminished Cardiovascular: No edema, Regular rate/rhythm Assessment And Plan - Current Problems (Diagnosis) (1) Respiratory failure Current Visit: Yes Status: Acute Plan: Patient admitted with hypoxic hypercapnic respiratory failure is clinically improving titrate sat to 90% he has underlying severe COPD in addition to hypothyroidism patient will be set up with home oxygen will need a long-acting bronchodilator at home Advair generic and outpatient testing for COPD and for sleep apnea patient appears to have chronic renal failure ultrasound is negative by nephrology avoid ALEX inhibitor changed to p.o. prednisone p.o. Augmentin DC IV steroids IV antibiotics white count is down back to normal Qualifiers: Chronicity: unspecified
--- NOTE | 2024-11-13 11:42 | P.PN ---
Subjective Date of Service: 11/13/24 Chief Complaint: Respiratory failure Patient states he feels much better. He is maintained on 4-5 L of oxygen by nasal cannula with oxygen saturation greater than 90%. He denies any chest pain. Physical Examination - Vital Signs Temperature: 98.4 F Blood Pressure: 117/60 Pulse: 73 Respirations: 16 Pulse Ox (%): 94 Assessment And Plan - Plan Physical examination General: Alert and oriented x3, NAD, Neck: Supple, no elevated JVD Heart: Heart sounds 1 and 2 normal, regular rhythm, normal rate, 1+ bilateral lower extremity pitting edema Lungs: Mild scattered wheezes, diminished breath sounds bilaterally, no crackles. Abdomen: Soft, obese abdomen, nontender, normal bowel sounds. Extremities: No tenderness, no deformity, Skin: Normal skin turgor, bilateral lower extremity venous stasis dermatitis Neuro: No focal motor deficit. Normal speech. Psychiatry: Normal mood, no agitation. Diagnosis COPD exacerbation Community-acquired pneumonia Acute on chronic respiratory failure with hypoxia and hypercapnia Hypothyroidism Acute kidney injury Medical noncompliance Plan COPD exacerbation Community-acquired pneumonia Acute hypoxemic hypercapnia respiratory failure Obesity hypoventilation Obstructive sleep apnea Clinically improving Wean oxygen to maintain SaO2 between 88 to 92%. IV azithromycin, Rocephin transition to oral Augmentin Continue nebs-albuterol, ipratropium IV methylprednisolone transition to oral prednisone for pulmonary. Assess for home oxygen. Pulmonary Dr. Bravo recommended follow-up in the office for sleep study after patient's hypothyroidism has been adequately treated. Hypothyroidism Noncompliance with thyroid replacement therapy. Synthroid resumed at 88 mcg daily. Patient will need TSH rechecked in 8 weeks. Acute kidney injury Unclear baseline creatinine Patient is receiving gentle hydration per nephrology. He also received a dose of IV Lasix. Renally dose medications Nephrology is following. Medication noncompliance Compliance to medical treatment reemphasized. DVT prophylaxis: Heparin Advanced directive: Full code
[2024-11-13] MEDS: predniSONE 20 MG TAB PO SCH (12:47)
[2024-11-13] MEDS: DULERA 200/5 (MOMETASONE/FORMOTEROL) INHALER IH SCH (20:28)
[2024-11-13] MEDS: AMOX/K CLAV 875 MG TAB PO SCH (20:28)
--- NOTE | 2024-11-13 22:42 | PN ---
Date of Progress Note: 11/13/2024 Subjective: This patient was admitted to the hospital with acute kidney injury secondary to prerenal . The patient received diuresis yesterday. Physical Examination: Vital Signs: Blood pressure 122/68, pulse of 83, afebrile. Chest: Faint rales bilateral. Heart: S1, S2. Regular. Abdomen: Soft, nontender. Extremities: Trace edema. Neurologic: Alert. No focality. Laboratory Data: WBC 10.9, hemoglobin 11.9. Sodium 139, potassium 4.8, bicarb 35, BUN 37, creatinin e 2.1. GFR of 36, glucose 399, calcium 9.2, phosphorus 3.5, albumin 2.9, corrected calcium of 10. S rosalba protein electrophoresis is still pending. PC ratio 0.2. Current Medications: The patient on include: 1. Augmentin. 2. Lasix given yesterday. 3. Levothyroxine. 4. Prednisone. Assessment And Plan: 1. Acute kidney injury secondary to prerenal, recovered, resolved, looks to me normal volume. We debora l continue off IV fluid, and we will monitor. The patient received single dose of Lasix yesterday. We will continue off diuresis. 2. Hypertension, controlled, optimal. Continue current treatment. 3. Anemia. Serum protein electrophoresis is still pending. 4. Metabolic alkalosis secondary to hypercapnic respiratory acidosis, stable. Keep holding the diuresis. 5. Diabetes. Continue better diabetes control. HILARIO/GERRI Voice ID: [id number] Report ID: [id number]
[2024-11-14 04:51] LABS: Albumin 2.7 g/dL (3.4-5.0); Phosphorus 3.1 mg/dL (2.5-4.9)
--- NOTE | 2024-11-14 13:55 | P.DS ---
Admission Date: 11/09/24 Discharge Date: 11/14/24 Disposition: ROUTINE DISCHARGE Discharge Condition: FAIR Reason for Admission: Respiratory failure Brief History of Present Illness: 54-year-old male with history of COPD, hypothyroidism previous tobacco use presented emergency department with complaints of progressive fatigue weakness, cough congestion and shortness of breath. The patient reports not having a PCP and reports being off medications for some time. Chest CT done in the ED demonstrated patchy lower lobe predominant consolidative as well as more diffuse tree-in-bud opacities bilaterally, suggestive of a multifocal infectious or inflammatory process such as pneumonia. Patient was hypoxic on room air in the ER. He was admitted for further management. Hospital Course: Diagnosis COPD exacerbation Community-acquired pneumonia Acute on chronic respiratory failure with hypoxia and hypercapnia Hypothyroidism Acute kidney injury Medical noncompliance Patient admitted to the medical floor and the following medical problems addressed: COPD exacerbation Community-acquired pneumonia Acute hypoxemic hypercapnia respiratory failure Obesity hypoventilation Obstructive sleep apnea Clinically improved Patient was weaned off high flow oxygen to 2 to 3 L oxygen by nasal cannula. Patient is hypoxic on room air, SaO2 of 87% on room air at rest. He was treated with IV azithromycin, Rocephin and transitioned to oral Augmentin He was treated with nebs-albuterol, ipratropium He was also on IV methylprednisolone which was transitioned to oral prednisone. Patient qualifies for home oxygen. He has clinically improved. He is discharged home oxygen Pulmonary Dr. Bravo recommended follow-up with him in the office for sleep study after patient's hypothyroidism has been adequately treated. Hypothyroidism Noncompliance with thyroid replacement therapy. Synthroid resumed at 88 mcg daily. Patient will need TSH rechecked in 8 weeks. Acute kidney injury Unclear baseline creatinine Creatinine improved with gentle IV hydration. Patient also received a dose of IV Lasix. Nephrology evaluated patient and assisted with management. Home dose oral Lasix resumed on discharge. Medication noncompliance Compliance to medical treatment reemphasized. Vital Signs/Physical Exam: Temp Pulse Resp BP Pulse Ox 98.2 F 76 16 128/62 87 L 11/14/24 11:00 11/14/24 11:00 11/14/24 11:00 11/14/24 11:11/14/24 11:00 General: Alert, In no apparent distress, Oriented x3, Obese HEENT: Mucous membr. moist/pink Neck: JVD not distended Cardiovascular: No edema, Regular rate/rhythm, Normal S1 S2 Gastrointestinal: Normal bowel sounds, Soft and benign, Non-distended Musculoskeletal: No swelling Integumentary: No rashes, No cyanosis Neurological: Normal strength at 5/5 x4 extr Laboratory Data at Discharge: WBC 10.90 thou/uL (4.3-10.9) 11/13/24 05:17 Hgb 11.9 g/dL (13.6-17.9) L 11/13/24 05:17 Hct 35.5 % (39.6-49.0) L 11/13/24 05:17 Plt Count 155 thou/uL (152-406) 11/13/24 05:17 PT 12.3 SECONDS (9.4-12.5) 11/09/24 14:46 INR 1.17 11/09/24 14:46 APTT 32.1 SECONDS (24.3-36.9) 11/09/24 14:46 Sodium 140 mEq/L (136-145) 11/14/24 04:17 Potassium 5.0 mEq/L (3.5-5.1) 11/14/24 04:17 BUN 39 mg/dL (7-18) H 11/14/24 04:17 Creatinine 1.83 mg/dL (0.70-1.30) H 11/14/24 04:17 Glucose 335 mg/dL (74-106) H 11/14/24 04:17 Phosphorus 3.1 mg/dL (2.5-4.9) 11/14/24 04:17 Magnesium 2.2 mg/dL (1.6-2.4) 11/11/24 17:41 Total Bilirubin 0.6 mg/dL (0.2-1.0) 11/09/24 14:46 AST 57 U/L (15-37) H 11/09/24 14:46 ALT 55 U/L (16-61) 11/09/24 14:46 Alkaline Phosphatase 80 U/L (45-117) 11/09/24 14:46 Home Medications: Aspirin [Aspirin EC] 81 mg PO DAILY 11/10/24 Furosemide 80 mg PO DAILY 11/10/24 Albuterol Neb [Proventil 0.083% Neb Soln] 2.5 mg NEB [id number] #120 amp 02/10/25 Amox/Clavulanate [Augmentin 875-125 Tab*] 875 mg PO BID #10 tab 11/14/24 Ipratropium Neb [Atrovent*] 0.5 mg NEB [id number] #120 amp 11/14/24 Levothyroxine [Synthroid*] 0.088 mg PO DAILYAC #30 tab 11/14/24 Mometasone/Formoterol [Dulera 200 Mcg/5 Mcg Inhaler] 2 puff IH BID #1 inhaler 11/14/24 predniSONE [Prednisone*] 20 mg PO BID #10 tab 11/14/24 New Medications: Ipratropium Neb [Atrovent*] 0.5 mg NEB [id number] #120 amp Albuterol Neb [Proventil 0.083% Neb Soln] 2.5 mg NEB [id number] #120 amp Amox/Clavulanate [Augmentin 875-125 Tab*] 875 mg PO BID #10 tab Mometasone/Formoterol [Dulera 200 Mcg/5 Mcg Inhaler] 2 puff IH BID #1 inhaler predniSONE [Prednisone*] 20 mg PO BID #10 tab Levothyroxine [Synthroid*] 0.088 mg PO DAILYAC #30 tab Diet: AHA Activity: Ad naeem Followup: Zachary Bravo MD [ACTIVE - CAN ADMIT] - 1-2 Weeks Time spent managing pt's care (in minutes): 36
--- NOTE | 2024-11-14 20:12 | P.PN ---
Subjective Date of Service: 11/14/24 Chief Complaint: Respiratory failure Patient states he is doing so much better. He was seen sitting at the edge of the bed on room air with oxygen saturation around 87% He denies any chest pain. Physical Examination - Vital Signs Temperature: 98.6 F Blood Pressure: 124/62 Pulse: 71 Respirations: 16 Pulse Ox (%): 89 - Studies Microbiology Data (last 24 hrs): 11/09/24 14:39 Blood - Blood Aerobic Blood Culture - Final No growth in 5 days. 11/09/24 14:39 Blood - Blood Anaerobic Blood Culture - Final No growth in 5 days. 11/09/24 14:46 Blood - Blood Aerobic Blood Culture - Final No growth in 5 days. 11/09/24 14:46 Blood - Blood Anaerobic Blood Culture - Final No growth in 5 days. Assessment And Plan - Plan Physical examination General: Alert and oriented x3, NAD, Neck: Supple, no elevated JVD Heart: Heart sounds 1 and 2 normal, regular rhythm, normal rate, 1+ bilateral lower extremity pitting edema Lungs: Mild scattered wheezes, diminished breath sounds bilaterally, no crackles. Abdomen: Soft, obese abdomen, nontender, normal bowel sounds. Extremities: No tenderness, no deformity, Skin: Normal skin turgor, bilateral lower extremity venous stasis dermatitis Neuro: No focal motor deficit. Normal speech. Psychiatry: Normal mood, no agitation. Diagnosis COPD exacerbation Community-acquired pneumonia Acute on chronic respiratory failure with hypoxia and hypercapnia Hypothyroidism Acute kidney injury Medical noncompliance Plan: COPD exacerbation Community-acquired pneumonia Acute hypoxemic hypercapnia respiratory failure Obesity hypoventilation Obstructive sleep apnea Clinically improved Patient weaned off high flow oxygen to 2 to 3 L oxygen by nasal cannula. Patient is hypoxic on room air, SaO2 of 87% on room air at rest. He was treated with IV azithromycin, Rocephin and transitioned to oral Augmentin On nebs-albuterol, ipratropium Status post IV methylprednisolone which was transitioned to oral prednisone. Patient qualifies for home oxygen. He has clinically improved. He will discharge home oxygen Pulmonary Dr. Bravo recommended follow-up with him in the office for sleep study after patient's hypothyroidism has been adequately treated. Hypothyroidism Noncompliance with thyroid replacement therapy. Synthroid resumed at 88 mcg daily. Patient will need TSH rechecked in 8 weeks. Acute kidney injury Unclear baseline creatinine Creatinine improved with gentle IV hydration. Patient also received a dose of IV Lasix. Nephrology evaluated patient and assisted with management. Resume home dose Lasix on discharge. Medication noncompliance Compliance to medical treatment reemphasized. DVT prophylaxis: Heparin Advanced directive: Full code
[2024-11-14] MEDS: IPRATROPIUM BROM 0.5MG/2.5ML ONE (21:49)
[2024-11-14] MEDS: ALBUTEROL 2.5 MG/3 ML NEB SOL ONE (22:06)
--- NOTE | 2024-11-14 23:48 | PN ---
Date of Progress Note: 11/14/2024 Chief Complaint: Acute kidney injury, prerenal azotemia. Review of Systems: Denies chest pain, palpitation, fever, chills. Physical Examination: Lungs: Few rhonchi. Heart: S1, S2. Abdomen: Soft, benign, obese. Extremities: Trace edema. Neurological: Alert. No focality. Laboratory Data: Sodium 130, potassium 4.8, bicarbonate 35, BUN 37, creatinine 2.1, estimated GFR 36 , glucose 399, calcium 9.2, phosphorus 3.5, albumin 2.9, corrected calcium of 10. Serum protein elec trophoresis is pending. Impression And Plan: 1. Acute kidney injury secondary to nonoliguric, acute tubular necrosis, prerenal azotemia. The jose ent has hyponatremia secondary to uncontrolled diabetes and hyperglycemia (pseudohyponatremia). Cont inue insulin to prevent prerenal azotemia. The patient received single dose of Lasix for volume cont rol. The patient has some peripheral edema. Continue low-sodium diet and p.o. fluid restriction. T he patient may benefit from normal saline as needed for acute kidney injury. Avoid nonsteroidal anti -inflammatory medication. 2. Hypertension. Blood pressure controlled. Continue current treatment. 3. Metabolic changes due to hypercapnic respiratory acidosis. Bicarbonate is elevated and is seconda ry to hypercapnic respiratory acidosis with metabolic acidosis. 4. Diabetes mellitus. Continue insulin. Avoid metformin. EB/MODL Voice ID: [id number] Report ID: [id number]
[2024-11-15] MEDS: IPRATROPIUM BROM 0.5MG/2.5ML ONE (02:01)
[2024-11-15] MEDS: ALBUTEROL 2.5 MG/3 ML NEB SOL ONE (02:01)
[2024-11-15 05:15] LABS: Albumin 2.8 g/dL (3.4-5.0); Anion Gap 4.8 mEq/L (5.0-15.0); Phosphorus 3.3 mg/dL (2.5-4.9); Potassium 4.8 mEq/L (3.5-5.1)
[2024-11-15 08:40] VITALS: O2SAT 91
--- NOTE | 2024-11-15 09:00 | P.DS ---
Admission Date: 11/09/24 Discharge Date: 11/15/24 Disposition: ROUTINE DISCHARGE Discharge Condition: FAIR Reason for Admission: Respiratory failure Consultations: Nephrology - Dr. Maza Pulmonology - Dr. Bravo Brief History of Present Illness: 54yo M, PMH: COPD, hypothyroidism previous tobacco use Patient presents with complaints of progressive fatigue weakness, cough congestion and shortness of breath. The patient reports not having a PCP and reports being off medications for some time Hospital Course: Problem List Acute on chronic COPD exacerbation Community-acquired pneumonia Acute on chronic respiratory failure with hypoxia and hypercapnia secondary to above Hypothyroidism MADI, improved Physician discharge instructions: Patient presented with worsening shortness of breath, weakness, cough, congestion secondary to pneumonia further complicated by COPD exacerbation. CT chest noted patchy lower lobe predominant consolidative as well as more diffuse tree-in-bud opacities bilaterally suggestive of a multifocal infectious or inflammatory process. Patient was started on IV steroids in addition to IV Azithromycin/Rocephin and had improvement of his symptoms. IV steroids/antibiotics were deescalated to oral Prednisone/Augmentin respectively and patient continued to clinically improve. Patient was eventually weaned off high flow oxygen, feeling significantly better compared to admission however was still requiring 2-3L by nasal cannula. Room O2 sats were checked - patient desat 87% on room air at rest qualifying him for home oxygen. Patient was feeling better, afebrile without leukocytosis for > 24 hours, breathing more comfortably and deemed stable for discharge with home oxygen. Advised patient to wear oxygen at home as needed to keep oxygen levels above 90- 92%. Thyroid studies this hospitalization: TSH 22.3 free t4: 0.21. Patient reports history of hypothyroidism but states he hasn't taken any home medication for over 2 years. Will send new prescription for levothyroxine 88 mcg daily. Advised patient to follow up with PCP in next 1-2 weeks for further management. Repeat thyroid studies in 2-[address] Bravo had also advised patient to follow up for an outpatient sleep study in the near future once patients hypothyroidism has been treated. Medications: Augmentin twice daily for 10 days Prednisone 20 mg twice daily for 10 days Synthroid 0.88 mcg daily Ipratropium Albuterol inhaler dulera inhaler Follow up with PCP for further refills. Follow up: PCP 3-5 days Pulmonology (Dr. Bravo) 2-4 weeks please call to schedule / confirm appointments Vital Signs/Physical Exam: Temp Pulse Resp BP Pulse Ox 97.6 F 72 17 147/70 H 90 L 11/15/24 04:00 11/15/24 04:00 11/15/24 04:00 11/15/24 04:00 11/15/24 04:00 Laboratory Data at Discharge: WBC 10.90 thou/uL (4.3-10.9) 11/13/24 05:17 Hgb 11.9 g/dL (13.6-17.9) L 11/13/24 05:17 Hct 35.5 % (39.6-49.0) L 11/13/24 05:17 Plt Count 155 thou/uL (152-406) 11/13/24 05:17 PT 12.3 SECONDS (9.4-12.5) 11/09/24 14:46 INR 1.17 11/09/24 14:46 APTT 32.1 SECONDS (24.3-36.9) 11/09/24 14:46 Sodium 139 mEq/L (136-145) 11/15/24 04:33 Potassium 4.8 mEq/L (3.5-5.1) 11/15/24 04:33 BUN 41 mg/dL (7-18) H 11/15/24 04:33 Creatinine 1.61 mg/dL (0.70-1.30) H 11/15/24 04:33 Glucose 315 mg/dL (74-106) H 11/15/24 04:33 Phosphorus 3.3 mg/dL (2.5-4.9) 11/15/24 04:33 Magnesium 2.2 mg/dL (1.6-2.4) 11/11/24 17:41 Total Bilirubin 0.6 mg/dL (0.2-1.0) 11/09/24 14:46 AST 57 U/L (15-37) H 11/09/24 14:46 ALT 55 U/L (16-61) 11/09/24 14:46 Alkaline Phosphatase 80 U/L (45-117) 11/09/24 14:46 Home Medications: Aspirin [Aspirin EC] 81 mg PO DAILY 11/10/24 Furosemide 80 mg PO DAILY 11/10/24 Albuterol Neb [Proventil 0.083% Neb Soln] 2.5 mg NEB [id number] #120 amp 11/14/24 Amox/Clavulanate [Augmentin 875-125 Tab*] 875 mg PO BID #10 tab 11/14/24 Ipratropium Neb [Atrovent*] 0.5 mg NEB [id number] #120 amp 11/14/24 Levothyroxine [Synthroid*] 0.088 mg PO DAILYAC #30 tab 11/14/24 Mometasone/Formoterol [Dulera 200 Mcg/5 Mcg Inhaler] 2 puff IH BID #1 inhaler 11/14/24 predniSONE [Prednisone*] 20 mg PO BID #10 tab 11/14/24 New Medications: Ipratropium Neb [Atrovent*] 0.5 mg NEB [id number] #120 amp Albuterol Neb [Proventil 0.083% Neb Soln] 2.5 mg NEB [id number] #120 amp Amox/Clavulanate [Augmentin 875-125 Tab*] 875 mg PO BID #10 tab Mometasone/Formoterol [Dulera 200 Mcg/5 Mcg Inhaler] 2 puff IH BID #1 inhaler predniSONE [Prednisone*] 20 mg PO BID #10 tab Levothyroxine [Synthroid*] 0.088 mg PO DAILYAC #30 tab Physician Discharge Instructions: Physician discharge instructions: Patient presented with worsening shortness of breath, weakness, cough, congestion secondary to pneumonia further complicated by COPD exacerbation. CT chest noted patchy lower lobe predominant consolidative as well as more diffuse tree-in-bud opacities bilaterally suggestive of a multifocal infectious or inflammatory process. Patient was started on IV steroids in addition to IV Azithromycin/Rocephin and had improvement of his symptoms. IV steroids/antibiotics were deescalated to oral Prednisone/Augmentin respectively and patient continued to clinically imp rove. Patient was eventually weaned off high flow oxygen, feeling significantly better compared to admission however was still requiring 2-3L by nasal cannula. Room O2 sats were checked - patient desat 87% on room air at rest qualifying him for home oxygen. Patient was feeling better, afebrile without leukocytosis for > 24 hours, breathing more comfortably and deemed stable for discharge with home oxygen. Advised patient to wear oxygen at home as needed to keep oxygen levels above 90- 92%. Thyroid studies this hospitalization: TSH 22.3 free t4: 0.21. Patient reports history of hypothyroidism but states he hasn't taken any home medication for over 2 years. Will send new prescription for levothyroxine 88 mcg daily. Advised patient to follow up with PCP in next 1-2 weeks for further management. Repeat thyroid studies in 2-[address] Bravo had also advised patient to follow up for an outpatient sleep study in the near future once patients hypothyroidism has been treated. Medications: Augmentin twice daily for 10 days Prednisone 20 mg twice daily for 10 days Synthroid 0.88 mcg daily Ipratropium Albuterol inhaler dulera inhaler Follow up with PCP for further refills. Follow up: PCP 3-5 days Pulmonology (Dr. Bravo) 2-4 weeks please call to schedule / confirm appointments Diet: AHA Activity: Ad naeem Followup: Zachary Bravo MD [ACTIVE - CAN ADMIT] - 1-2 Weeks Time spent managing pt's care (in minutes): 45
[2024-11-15 09:18] VITALS: BP 141/68; TEMP 98.1
[2024-11-16 12:48] LABS: Abnormal Protein Band 1 REPORT; Albumin, (SPE) 3.1 g/dL (3.8-4.8); Alpha-1-Globulins 0.4 g/dL (0.2-0.3); Alpha-2-Globulins 0.6 g/dL (0.5-0.9); Beta 1 Globulin 0.4 g/dL (0.4-0.6); Gamma Globulins 1.7 g/dL (0.8-1.7); INTERPRETATION REPORT; Total Protein 6.6 g/dL (6.1-8.1)
[2024-11-16 17:07] LABS: C-ANCA Anti-Proteinase 3 <1.0 AI (<1.0); P-ANCA Anti-Myeloperoxidase Ab <1.0 AI (<1.0)
[2024-11-16 18:33] LABS: Anti-Nuclear Antibody Screen Negative (Negative)
== END 2024-11-15 15:15 | disposition home or self-care (01) | DRG 193 ==
LOC: ER 13:48 → ERHOLD 20:41 → 2ND 11-10 15:12
PROVIDERS: ADMIT Internal Medicine; ATTEND Hospitalist
PROC: 4A033R1 Measurement of Arterial Saturation, Peripheral, Percutaneous Approach (ICD-10-PCS; principal; 2024-11-09)
PROC: 5A09557 Assistance with Respiratory Ventilation, Greater than 96 Consecutive Hours, Continuous Positive Airway Pressure (ICD-10-PCS; 2024-11-09)
DX: J18.9 Pneumonia, unspecified organism (principal); J96.21 Acute and chronic respiratory failure with hypoxia; J96.22 Acute and chronic respiratory failure with hypercapnia; N17.0 Acute kidney failure with tubular necrosis; J44.0 Chronic obstructive pulmonary disease with (acute) lower respiratory infection; J44.1 Chronic obstructive pulmonary disease with (acute) exacerbation; E66.2 Morbid (severe) obesity with alveolar hypoventilation; E87.3 Alkalosis; E87.1 Hypo-osmolality and hyponatremia; D64.9 Anemia, unspecified; E03.9 Hypothyroidism, unspecified; Z79.82 Long term (current) use of aspirin; Z68.38 Body mass index [BMI] 38.0-38.9, adult; Z11.52 Encounter for screening for COVID-19; Z87.891 Personal history of nicotine dependence; Z91.148 Patient's other noncompliance with medication regimen for other reason; Z79.899 Other long term (current) drug therapy
CPT/HCPCS: 36415; 36600; 70450; 71045; 71250; 76770; 80048; 80053; 80069; 81001; 82550; 82570; 82805; 83520; 83605; 83735; 83880; 83935; 84100; 84132; 84156; 84165; 84300; 84439; 84443; 84484; 85025; 85610; 85730; 86021; 86038; 86160; 86225; 86704; 86706; 87040; 87340; 87804; 87811; 93005; 94010; 94660; 94760; 96374; 96375; 99285; J0696; J1644; J1650; J1940; J2919; J3535; J7030; J7040; J7050; J7512; J7613; J7644